=== PATIENT | male | born 1995 ===

== ENCOUNTER 2018-08-23 11:05 | Emergency (ER) | payer SELFPAY ==
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
[2018-08-23 13:38] VITALS: BP 120/73
== END 2018-08-23 13:35 | disposition home or self-care (01) ==
LOC: UCEAST 11:05
DX: S01.01XD Laceration without foreign body of scalp, subsequent encounter (principal); X58.XXXD Exposure to other specified factors, subsequent encounter; Y92.9 Unspecified place or not applicable
CPT/HCPCS: 99211; G0463